=== PATIENT | male | born 1985 | race African-American/Black ===

== ENCOUNTER 2017-08-27 09:55 | Emergency (ER) | payer BC ==
[~2017-08-27] VITALS: Ht 172.7 cm; Wt 76.0 kg
[2017-08-27] MEDS ORDERED: ALBU2.5V13 IH (10:00)
[2017-08-27 11:36] VITALS: BP 123/77
== END 2017-08-27 11:41 | disposition home or self-care (01) ==
LOC: ER 10:13
DX: J45.909 Unspecified asthma, uncomplicated (principal); L01.00 Impetigo, unspecified
CPT/HCPCS: 99283